=== PATIENT | female | born 1980 | race Caucasian/White ===

== ENCOUNTER 2023-05-08 14:15 | Outpatient (CLI) | payer OTHER | END 2023-05-08 14:16 | disposition home or self-care (01) | LOC: CSHLAB 14:15 | PROVIDERS: ATTEND Obstetrics & Gynecology | DX: Z01.812 Encounter for preprocedural laboratory examination (principal); D25.9 Leiomyoma of uterus, unspecified | CPT/HCPCS: 84703; 85027; 86850; 86900; 86901 ==

== ENCOUNTER 2023-05-12 05:52 | Day surgery (SDC) | payer OTHER ==
[2023-05-08 14:52] VITALS: BMI 28.3
[2023-05-08 15:11] LABS: Hematocrit 36.3 % (34.9-44.5); Hemoglobin 11.7 g/dL (12.0-15.5); Mean Corpuscular HGB CONC 32.2 g/dL (32.0-36.0); Mean Corpuscular Hemoglobin 26.3 pg (27.0-33.0); Mean Corpuscular Volume 81.6 fl (81.6-98.3); Mean Platelet Volume 11.7 fl (7.4-10.4); Platelet Count 178 10x3/uL (150-450); RBC Distribution Width 20.6 % (11.5-14.5); Red Blood Cell (RBC) Count 4.45 10x6/uL (3.90-5.03); White Blood Cell (WBC) Count 8.7 10x3/uL (3.5-10.5)
[2023-05-08 15:49] LABS: BHCG - Serum Negative (NEGATIVE); Pregs Control Background? CLEAR/WHITE (CLR/WHITE); Pregs Control Bar Appear? YES (CONTROL BAR)
[2023-05-12] MEDS ORDERED: Famotidine/PF 20 mg/2ml Vial ONE (06:22)
[2023-05-12] MEDS ORDERED: CeleCOXIB 100 MG CAP ONE (06:22)
[2023-05-12] MEDS ORDERED: Gabapentin 300 MG CAP ONE (06:22)
[2023-05-12] MEDS ORDERED: EPINEPHrine 1 MG/ML AMP ONE (06:36)
[2023-05-12] MEDS ORDERED: Bupivacaine PF 0.5% 30 ML VIAL ONE (06:37)
[2023-05-12] MEDS ORDERED: Rocuronium Bromide 10 MG/ML (10ML VIAL) ONE (07:17)
[2023-05-12] MEDS ORDERED: Lidocaine 1% PF 5 ML VIAL ONE (07:17)
[2023-05-12] MEDS ORDERED: Ondansetron PF 4 MG/2 ML Vial ONE (07:17)
[2023-05-12] MEDS ORDERED: Dexamethasone 4 mg/ml Vial ONE (07:17)
[2023-05-12] MEDS ORDERED: Esmolol 100 MG/10 ML VIAL ONE (07:17)
[2023-05-12] MEDS ORDERED: SUGAMMADEX SODIUM 200 MG/2 ML VIAL ONE (07:25)
[2023-05-12] MEDS ORDERED: Propofol 1,000 MG/100 ML VIAL IV ONE (07:26)
[2023-05-12] MEDS ORDERED: HYDROmorphone 0.5 MG/0.5 ML SYRINGE ONE (07:26)
[2023-05-12] MEDS ORDERED: CEFAZOLIN 2 GM VIAL ONE (07:27)
[2023-05-12] MEDS ORDERED: Midazolam HCl 2 mg/2 ml Vial ONE (07:29)
[2023-05-12] MEDS ORDERED: fentaNYL 50 mcg/mL 1 mL Vial ONE (07:29)
[2023-05-12] MEDS ORDERED: Ketorolac Tromethamine 30 MG/ML VIAL ONE (08:34)
[2023-05-12] MEDS ORDERED: HYDROcodone/Acetaminophen 5/325 mg Tablet PO PRN ×2 (08:52)
[2023-05-12] MEDS ORDERED: traMADol HCl 50 MG TAB PO PRN (08:52)
[2023-05-12] MEDS ORDERED: diphenhydrAMINE 25 MG CAP PO PRN (08:52)
[2023-05-12] MEDS ORDERED: Simethicone Chewable 80 MG TAB PO PRN (08:52)
[2023-05-12] MEDS ORDERED: Promethazine HCl 25 MG/ML VIAL IM PRN (08:52)
[2023-05-12] MEDS ORDERED: Ondansetron PF 4 MG/2 ML Vial IVP PRN (08:52)
[2023-05-12] MEDS ORDERED: Zolpidem Tartrate 5 MG TAB PO PRN (08:52)
[2023-05-12] MEDS ORDERED: Bisacodyl 10 MG SUPP PR PRN (08:52)
[2023-05-12] MEDS ORDERED: fentaNYL 50 mcg/mL 1 mL Vial SLOW IVP PRN (10:13)
[2023-05-12] MEDS: Ketorolac Tromethamine 30 MG/ML VIAL IVP SCH ×2 (16:47→17:34)
[2023-05-12] MEDS: Sodium Chloride 0.9% 1,000 ML IV SCH (20:45)
[2023-05-13 03:17] LABS: Hematocrit 33.6 % (34.9-44.5); Hemoglobin 10.7 g/dL (12.0-15.5); Mean Corpuscular HGB CONC 31.8 g/dL (32.0-36.0); Mean Corpuscular Hemoglobin 26.8 pg (27.0-33.0); Mean Platelet Volume 12.8 fl (7.4-10.4); Platelet Count 164 10x3/uL (150-450); RBC Distribution Width 21.2 % (11.5-14.5)
[2023-05-13] MEDS ORDERED: Ibuprofen 800 MG TAB PO SCH (06:00)
[2023-05-13] MEDS: Sodium Chloride 0.9% 1,000 ML IV SCH (06:51)
[2023-05-13 07:49] VITALS: BP 129/70; TEMP 98.5
[2023-05-13] MEDS ORDERED: Ferrous Sulfate 325 MG TAB PO SCH (08:00)
== END 2023-05-13 08:24 | disposition home or self-care (01) ==
LOC: CSHSDC 05:52 → CSHPED 10:11 → CSHSDC 05-13 08:24
PROVIDERS: ATTEND Obstetrics & Gynecology
PROC: 0UB74ZZ Excision of Bilateral Fallopian Tubes, Percutaneous Endoscopic Approach (ICD-10-PCS; principal; 2023-05-12)
PROC: 0UT94ZZ Resection of Uterus, Percutaneous Endoscopic Approach (ICD-10-PCS; principal; 2023-05-12)
DX: D25.9 Leiomyoma of uterus, unspecified (principal); D64.9 Anemia, unspecified; N80.03 Adenomyosis of the uterus; N73.6 Female pelvic peritoneal adhesions (postinfective); N92.0 Excessive and frequent menstruation with regular cycle
CPT/HCPCS: 36415; 84703; 85027; 86850; 86900; 86901; 88307; J0171; J1100; J1170; J1885; J2250; J2405; J2704; J3010; Q9968; S0020; S0028